=== PATIENT | male | born 1945 | race Caucasian/White ===

== ENCOUNTER 2022-02-14 11:23 | Day surgery (SDC) | payer MEDICARE, OTHER ==
[2022-02-14] MEDS ORDERED: CEFAZOLIN SODIUM IN 0.9 % NACL 2 GM/50 ML BAG IV ONE (11:27)
[2022-02-14] MEDS ORDERED: LACTATED RINGERS 1,000 ML IV ONE ×2 (11:56→13:46)
[2022-02-14] MEDS ORDERED: BUPIVACAINE 0.25% PF 10 ML VIAL ONE (13:01)
[2022-02-14] MEDS ORDERED: LIDOCAINE 2%-EPI 1:100000 20 ML MDV ONE (13:01)
[2022-02-14] MEDS ORDERED: ceFAZolin 1 GM VIAL ONE (13:03)
[2022-02-14] MEDS ORDERED: MIDAZOLAM 2 MG/2 ML VIAL ONE (13:06)
[2022-02-14] MEDS ORDERED: fentaNYL 100 MCG/2 ML VIAL ONE (13:06)
[2022-02-14] MEDS ORDERED: HYDROmorphone 0.5 MG/0.5 ML SYRINGE IVP PRN (13:09)
[2022-02-14] MEDS ORDERED: fentaNYL 100 MCG/2 ML VIAL IVP PRN (13:09)
[2022-02-14] MEDS ORDERED: ATROPINE ABBOJECT 1 MG/10 ML SYRINGE IVP PRN (13:09)
[2022-02-14] MEDS ORDERED: MORPHINE 2 MG/ML CARPUJECT IVP PRN (13:09)
[2022-02-14] MEDS ORDERED: METOCLOPRAMIDE 10 MG/2 ML VIAL IVP PRN (13:09)
[2022-02-14] MEDS ORDERED: ONDANSETRON 4 MG/2 ML VIAL IVP PRN (13:09)
[2022-02-14] MEDS ORDERED: NALOXONE 0.4 MG/ML VIAL IVP PRN (13:09)
[2022-02-14] MEDS ORDERED: ePHEDrine 50 MG/ML VIAL IVP PRN (13:09)
--- NOTE | 2022-02-14 13:09 | ANESTHESIA ---
Pre-Anesthesia VS, & Labs - Diagnosis inguinal hernia - Procedure inguinal hernia repair Vital Signs: Temp Pulse Resp BP Pulse Ox 36.5 C 123 H 19 143/114 H 100 02/14/22 11:45 02/14/22 11:45 02/14/22 11:45 02/14/22 11:45 02/14/22 11:45 Height: 5 ft 9 in Weight (kg): 75 kg Body Mass Index: 24.4 BMI Classification: Healthy weight - NPO >8 hours Home Medications and Allergies Home Medications: Ambulatory Orders Benazepril HCl 20 mg PO QPM 02/08/22 Benazepril HCl 20 mg PO QPM 02/08/22 Allergies/Adverse Reactions: Allergies Allergy/AdvReac Type Severity Reaction Status Date / Time Penicillins Allergy Anaphylaxis Verified 02/08/22 12:28 Anes History & Medical History - Anesthetic History Anesthesia Complications: reports: No previous complications Family history of Anesthesia Complications: Denies Family history of Malignant Hyperthermia: Denies - Medical History Cardiovascular: reports: Hypertension Pulmonary: reports: None Gastrointestinal: reports: None Urinary: reports: None Musculoskeletal: reports: Osteoarthritis Endocrine/Autoimmune: reports: None Skin: reports: Other - Surgical History General: reports: Colonoscopy, Other Orthopedic: reports: Knee replacement, Other Exam General: Alert, Oriented x3, Cooperative Dental: WNL Mouth Openin Fingerbreadth Neck Mobility: Normal Mallampati classification: II Thyromental Distance: 4-6 cm Respiratory: Lungs clear Cardiovascular: Regular rate Plan Anesthesia Type: General Consent for Procedure(s) Verified and Reviewed: Yes Code Status: Attempt Resuscitation ASA classification: 2-Mild systemic disease Is this case an emergency?: No
[2022-02-14] MEDS ORDERED: LACTATED RINGERS 1,000 ML IV SCH (14:00)
[2022-02-14 14:25] LABS: HCT - HEMATOCRIT 42.5 % (42.0-52.0); HGB - HEMOGLOBIN 14.2 g/dL (14.0-18.0); MEAN CORPUSCULAR HEMOGLOBIN 30.1 pg (27.0-31.0); MEAN CORPUSCULAR HGB CONC 33.4 g/dL (32.0-36.0); MEAN PLATELET VOLUME 9.4 fL (7.4-11.4); RED BLOOD COUNT 4.72 10^6/uL (4.70-6.10); RED CELL DISTRIBUTION WIDTH 13.6 % (12.0-15.0); WHITE BLOOD COUNT 7.6 x10^3/uL (4.8-10.8)
--- NOTE | 2022-02-14 14:28 | CONSULTATION NOTE ---
Consultation Report: case cancelled. See written note on anesthesia record 02/14/22 for documentation.
--- NOTE | 2022-02-14 14:38 | XRAY Report ---
PROCEDURE: Chest 1 View X-Ray INDICATIONS: R/O cardiac TECHNIQUE: One view of the chest was acquired. COMPARISON: None. FINDINGS: Surgical changes and devices: Patient is status post bilateral shoulder arthroplasty.. Lungs and pleura: No pleural effusions or pneumothorax. Lungs are clear. Mediastinum: Mediastinal contours appear normal. Heart size is borderline enlarged. Bones and chest wall: No suspicious bony lesions. Overlying soft tissues appear unremarkable. IMPRESSION: Borderline cardiomegaly. No acute cardiopulmonary pathology. Reviewed by: Leroy Leyva MD on 02/14/2022 2:36 PM PDT Approved by: Leroy Leyva MD on 02/14/2022 2:36 PM PDT Station ID: [id number]
[2022-02-14 14:43] LABS: CALCIUM 8.8 mg/dL (8.5-10.3); CREATININE 0.8 mg/dL (0.6-1.2); MAGNESIUM 1.8 mg/dL (1.7-2.8); PHOSPHORUS 3.4 mg/dL (2.5-4.6); POTASSIUM 3.6 mmol/L (3.5-5.0)
[2022-02-14 15:08] VITALS: BP 137/103
--- NOTE | 2022-02-14 15:40 | ANESTHESIA POST OP EVALUATION ---
Anesthesia Post Eval - Post Anesthesia Eval Vitals: Last Vital Signs Temp 36.5 C 02/14/22 14:10 Pulse 100 02/14/22 15:06 Resp 16 02/14/22 15:06 BP 137/103 H 02/14/22 15:06 Pulse Ox 99 02/14/22 15:06 CV Function Including HR & BP: Stable Pain Control: Satisfactory Nausea & Vomiting: Negative Mental Status: Baseline Respiratory Status: Airway Patent Hydration Status: Satisfactory Anesthesia Complications: None (Discussed poc with Dr Das and pt. Pt asymptomatic, denies any pain/N/V. All labs WNL,no change in EKG, CXR indicating mild cardiomegaly. Stress test recommended by Dr Das prior to rescheduling surgery, pt will follow up with PCP regarding that receommendation. Pt d/c'd home in stable condition.)
== END 2022-02-14 11:24 | disposition home or self-care (01) ==
LOC: SDS 11:23
PROVIDERS: ATTEND Surgery
DX: K40.91 Unilateral inguinal hernia, without obstruction or gangrene, recurrent (principal); R94.31 Abnormal electrocardiogram [ECG] [EKG]; I10 Essential (primary) hypertension; I47.2 Ventricular tachycardia; Z53.09 Procedure and treatment not carried out because of other contraindication
CPT/HCPCS: 36415; 71045; 80048; 83735; 84100; 84443; 84484; 85027; 93005; J0690; J7120